=== PATIENT | male | born 1990 | race Caucasian/White ===

== ENCOUNTER 2020-11-20 00:44 | Emergency (ER) | payer OTHER ==
[~2020-11-20] VITALS: Ht 165.1 cm; Wt 71.7 kg
[2020-11-20 02:45] VITALS: BP 121/78
== END 2020-11-20 02:45 | disposition home or self-care (01) ==
LOC: M.ERS 00:44
DX: F11.10 Opioid abuse, uncomplicated (principal); F32.9 Major depressive disorder, single episode, unspecified